=== PATIENT | female | born 1965 | race Caucasian/White ===

== ENCOUNTER 2019-06-03 13:50 | Emergency (ER) | payer OTHER ==
[~2019-06-03] VITALS: Ht 167.6 cm; Wt 59.0 kg
[2019-06-03 14:04] VITALS: BP 156/85
[2019-06-03] MEDS ORDERED: methylPREDNISolone SOD SUCC 125 MG/2 ML VL IV ONE (15:15)
== END 2019-06-03 15:35 | disposition home or self-care (01) ==
LOC: EDBD 13:50 → ER 13:50
DX: T78.40XA Allergy, unspecified, initial encounter (principal); I10 Essential (primary) hypertension; Z88.2 Allergy status to sulfonamides; X58.XXXA Exposure to other specified factors, initial encounter

== ENCOUNTER 2019-06-08 08:34 | Emergency (ER) | payer OTHER ==
[~2019-06-08] VITALS: Ht 167.6 cm; Wt 58.5 kg
[2019-06-08 08:42] VITALS: BP 161/99
== END 2019-06-08 09:56 | disposition home or self-care (01) ==
LOC: ER 08:34
DX: R09.89 Other specified symptoms and signs involving the circulatory and respiratory systems (principal); R21 Rash and other nonspecific skin eruption; I10 Essential (primary) hypertension; Z88.5 Allergy status to narcotic agent; Z88.2 Allergy status to sulfonamides; Z88.8 Allergy status to other drugs, medicaments and biological substances

== ENCOUNTER 2020-03-03 03:13 | Inpatient (IN) | payer OTHER ==
[2020-03-03] VITALS (7 sets, daily range): BP systolic 112–171; BP diastolic 66–89
[~2020-03-03] VITALS: Ht 162.6 cm; Wt 58.5 kg
[2020-03-03] MEDS ORDERED: methylPREDNISolone SOD SUCC 125 MG/2 ML VL IV ONE (04:00)
[2020-03-03 04:11] LABS: Basophils # (auto) 0 10 ^3/uL (0-0.2); Basophils % (auto) 0.6 % (0.0-2.0); Eosinophils # (auto) 0.1 10 ^3/uL (0-0.8); Eosinophils % (auto) 1.1 % (0.0-7.0); Hematocrit 46.3 % (36.0-46.0); Lymphocytes # (auto) 1.8 10 ^3/uL (0.4-5.4); Lymphocytes % (auto) 29.9 % (10.0-50.0); Mean Corpuscular Hemoglobin 33.1 pg (28.0-32.0); Mean Corpuscular Hgb Conc. 34.5 g/dL (32.0-36.0); Mean Corpuscular Volume 95.7 fL (80.0-100.0); Monocytes # (auto) 0.5 10 ^3/uL (0-1.3); Monocytes % (auto) 7.5 % (0.0-12.0); Neutrophils # (auto) 3.7 10 ^3/uL (1.6-8.6); Neutrophils % (auto) 60.9 % (37.0-80.0); Red Blood Cells 4.84 10^6/uL (4.0-5.20); Red Cell Distribution Width 11.9 % (11.8-14.3)
[2020-03-03 04:19] LABS: Platelet Count (auto) 19 10^3/uL (140-450)
[2020-03-03 04:31] LABS: Albumin 3.8 g/dL (3.4-5.0); Anion Gap 3 (5-15); Blood Urea Nitrogen 22 mg/dL (7-18); Calcium 8.7 mg/dL (8.5-10.1); Carbon Dioxide 32 mmol/L (21-32); Chloride 104 mmol/L (98-107); Glucose 127 mg/dL (74-106); Potassium 3.2 mmol/L (3.5-5.1); Sodium 139 mmol/L (136-145)
[2020-03-03 04:37] LABS: Alanine Aminotransferase 33 U/L (13-56); Alkaline Phosphatase 103 U/L (45-117); Aspartate Aminotransferase 24 U/L (15-37); BUN/Creatinine Ratio 27.5; Bilirubin, Total 0.6 mg/dL (0.2-1.0); GFR African American 95 mL/min; GFR Non-African American 79 mL/min; Total Protein 6.8 g/dL (6.4-8.2)
[2020-03-03 04:43] LABS: INR 1.03 (0.9-1.15); Partial Thromboplastin Time 25.9 sec (23.0-31.2)
[2020-03-03 05:48] LABS: Urine Bacteria NONE SEEN /hpf (None Seen); Urine Blood Negative /uL (Negative); Urine Mucus FEW (None Seen); Urine Specific Gravity 1.007 (1.001-1.035); Urine WBC 1 /hpf (0 - 5)
[2020-03-03] MEDS ORDERED: diphenhdrAMINE HCL 50 MG/1 ML VL IV ONE (07:30)
[2020-03-03] MEDS ORDERED: POTASSIUM EFFERVESENT TAB 25 MEQ PO ONE (07:30)
[2020-03-03 09:45] LABS: Basophils # (auto) 0 10 ^3/uL (0-0.2); Basophils % (auto) 0.1 % (0.0-2.0); Eosinophils # (auto) 0 10 ^3/uL (0-0.8); Lymphocytes # (auto) 0.4 10 ^3/uL (0.4-5.4); Monocytes # (auto) 0.5 10 ^3/uL (0-1.3); Platelet Count (auto) 43 10^3/uL (140-450); Red Cell Distribution Width 11.9 % (11.8-14.3)
[2020-03-03] MEDS ORDERED: NITROGLYCERIN 0.4 MG SL TAB SL PRN (09:45)
[2020-03-03] MEDS ORDERED: MORPHINE SULF INJ 2 MG/ML SYRINGE 1ML IV PRN ×2 (09:45)
[2020-03-03] MEDS ORDERED: traMADol HCL 50 MG TAB PO PRN (09:45)
[2020-03-03] MEDS ORDERED: ACETAMINOPHEN 500 MG TAB PO PRN (09:45)
[2020-03-03] MEDS ORDERED: DEXTROSE (50%) 50ML SYRG IV PRN (09:45)
[2020-03-03] MEDS ORDERED: PROMETHAZINE HCL 25 MG/ML 1ML IV PRN (09:45)
[2020-03-03] MEDS ORDERED: TEMAZEPAM 15 MG CAP PO PRN (09:45)
[2020-03-03 09:46] LABS: Hemoglobin 15.8 g/dL (12.2-16.2); Lymphocytes % (auto) 2.1 % (10.0-50.0); Mean Corpuscular Hemoglobin 32.6 pg (28.0-32.0); Mean Corpuscular Hgb Conc. 34.2 g/dL (32.0-36.0); Mean Corpuscular Volume 95.1 fL (80.0-100.0); Monocytes % (auto) 2.9 % (0.0-12.0); Neutrophils # (auto) 17.3 10 ^3/uL (1.6-8.6); Neutrophils % (auto) 94.9 % (37.0-80.0); Red Blood Cells 4.84 10^6/uL (4.0-5.20); White Blood Cell 18.3 10^3/uL (4.4-10.8)
[2020-03-03 10:22] LABS: Alcohol, Urine < 3.0 mg/dL (0-10); Amphetamine Screen, Urine NEGATIVE (NEGATIVE); Barbiturate Scree,Urine NEGATIVE (NEGATIVE); Benzodiazephine Screen, Urine NEGATIVE (NEGATIVE); Cannabinoid Screen, Urine NEGATIVE (NEGATIVE); Cocaine Screen, Urine NEGATIVE (NEGATIVE); Opiate Scree,Urine NEGATIVE (NEGATIVE); Phencyclidine Screen, Urine NEGATIVE (NEGATIVE)
[2020-03-03] MEDS: SODIUM CHLORIDE 0.9% 1,000 ML IV SCH ×2 (10:32→22:24)
[2020-03-03] MEDS: NITROGLYCERIN 0.2MG/HR TOPICAL PATCH TD SCH (10:32)
[2020-03-03] MEDS: ACCU-CHEK COMFORT CURVE STRIP VI SCH ×3 (11:34→22:13)
[2020-03-03] MEDS ORDERED: MAGN400T40 PO (12:16)
[2020-03-03] MEDS ORDERED: FLUO0.059 TOP (12:16)
[2020-03-03] MEDS ORDERED: FLUO0.054 TOP (12:20)
[2020-03-03 17:10] LABS: Cholesterol 153 mg/dL (< 200); HDL Cholesterol 68 mg/dL (40-59); LDL Cholesterol 80 mg/dL (< 100); Triglycerides 32 mg/dL (< 150)
--- NOTE | 2020-03-03 19:00 | NUR ---
Opening Shift Note Assumed care of patient, awake and alert. No S/S of distress/SOB or pain. Instructed on POC and to call for assist PRN, will continue to monitor for changes Q1hr and PRN.
--- NOTE | 2020-03-03 20:47 | NUR ---
RT CALLED CALLED RT AT 2046 ABOUT HER C-PAP ORDER. DARLINE FROM RT SAID THEY WILL SEE THE PATIENT.
[2020-03-03] MEDS: ATORVASTATIN 20 MG TAB PO SCH (22:00)
--- NOTE | 2020-03-03 22:05 | NUR ---
REFUSED LIPITOR PATIENT WISHES TO CONSULT MD AT [facility] BEFORE TAKING LIPITOR.
[2020-03-04 05:09] VITALS: BP 124/76
[2020-03-04] MEDS: ACCU-CHEK COMFORT CURVE STRIP VI SCH (06:21)
--- NOTE | 2020-03-04 07:21 | NUR ---
PT. FOUND OFF CPAP MACHINE THIS AM. , NO RESP. DISTRESS NOTED. PT. STATES THAT SHE WEARS ONE AT NIGHT AT HOME. PT. STATES SHE WORE THE CPAP LAST NIGHT AND DID OK WITH IT. PT. WILL WEAR AGAIN TONIGHT IF SHE IS STAYING. HR=79,RR=16,SP02=97% ON RA.
--- NOTE | 2020-03-04 07:30 | NUR ---
Opening Shift Note Assumed care of patient, awake and alert. No S/S of distress/SOB or pain. Instructed on POC and to call for assist PRN, will continue to monitor for changes Q1hr and PRN. Bed is locked and in lowest position. Call light within reach.
[2020-03-04 08:00] VITALS: BP_SYST 123; BP_SYST 131; BP_DIAS 69; BP_DIAS 72
[2020-03-04] MEDS ORDERED: ADENOSINE 50 MG in GIVE UN-DILUTED 0 ML IV STA (08:28)
[2020-03-04] MEDS: NITROGLYCERIN 0.2MG/HR TOPICAL PATCH TD SCH (11:29)
[2020-03-04] MEDS ORDERED: cefTRIAXone 1GM/50ML D5W 50 ML IV ONE (11:30)
[2020-03-04 12:00] VITALS: BP 123/69
[2020-03-04] MEDS: SODIUM CHLORIDE 0.9% 1,000 ML IV SCH (12:24)
--- NOTE | 2020-03-04 14:00 | NUR ---
PATIENT REQUESTED [employer] TO TALK ABOUT PERSONAL MATTERS. YASH FROM [employer] WAS ABLE TO SPEAK TO PATIENT. WILL CONTINUE TO MONITOR PATIENT.
[2020-03-04 17:00] VITALS: BP 125/72
--- NOTE | 2020-03-04 20:59 | NUR ---
LIPITOR REFUSED AGAIN PATIENT DOES NOT WISH TO TAKE HER LIPITOR UNTIL SHE SPEAKS TO HER GAS ENGINE REPAIRER AT [facility].
[2020-03-04 22:00] VITALS: BP 127/74
[2020-03-04] MEDS: ATORVASTATIN 20 MG TAB PO SCH (22:00)
[2020-03-05 05:00] VITALS: BP 123/79
[2020-03-05 06:41] LABS: Basophils # (auto) 0.1 10 ^3/uL (0-0.2); Eosinophils # (auto) 0.1 10 ^3/uL (0-0.8); Hemoglobin 13.9 g/dL (12.2-16.2); Lymphocytes # (auto) 2.1 10 ^3/uL (0.4-5.4); Neutrophils # (auto) 6.2 10 ^3/uL (1.6-8.6); Red Blood Cells 4.15 10^6/uL (4.0-5.20)
[2020-03-05 06:43] LABS: Basophils % (auto) 0.9 % (0.0-2.0); Eosinophils % (auto) 1.1 % (0.0-7.0); Hematocrit 39.6 % (36.0-46.0); Lymphocytes % (auto) 22.9 % (10.0-50.0); Mean Corpuscular Hemoglobin 33.4 pg (28.0-32.0); Mean Corpuscular Volume 95.6 fL (80.0-100.0); Monocytes # (auto) 0.7 10 ^3/uL (0-1.3); Monocytes % (auto) 7.5 % (0.0-12.0); Neutrophils % (auto) 67.6 % (37.0-80.0); Platelet Count (auto) 38 10^3/uL (140-450); Red Cell Distribution Width 12.3 % (11.8-14.3); White Blood Cell 9.2 10^3/uL (4.4-10.8)
[2020-03-05 09:00] VITALS: BP 135/76
[2020-03-05] MEDS: cefTRIAXone 1GM/50ML D5W 50 ML IV SCH (09:12)
[2020-03-05] MEDS: NITROGLYCERIN 0.2MG/HR TOPICAL PATCH TD SCH (09:18)
[2020-03-05] MEDS: SODIUM CHLORIDE 0.9% 1,000 ML IV SCH ×2 (12:08→15:02)
[2020-03-05 13:00] VITALS: BP 144/90
--- NOTE | 2020-03-05 14:09 | NUR ---
Nutrition Assessment Note please see attached link for complete assessment Est Energy needs BW 58 [id number] kcals (25-30 kcal/kgBW), Est Protein needs: 58-69 gms/day (1.0-1.2 gm/kgBW). Will continue to monitor and reassess prn. Addendum: 03/05/20 at [address] Amended: Links added.
[2020-03-05 17:00] VITALS: BP 159/94
--- NOTE | 2020-03-05 18:30 | NUR ---
IV removal IV DC'd on right AC with clean sterile technique, catheter fully intact. Pressure dressing applied to site. Patient tolerated well. Tried to obtain IV access via clean sterile technique by inserting 20 gauge catheter at right forearm and left ac after 2 attempts. No IV access was obtained. Pressure dressing applied to site. Patient tolerated well.
--- NOTE | 2020-03-05 19:00 | NUR ---
Opening Shift Note Assumed care of patient, awake and alert. No S/S of distress/SOB or pain. Instructed on POC and to callf or assist PRN, will continue to monitor for changes Q1hr and PRN.
[2020-03-05 22:00] VITALS: BP 151/103
[2020-03-05] MEDS: ATORVASTATIN 20 MG TAB PO SCH (22:00)
--- NOTE | 2020-03-05 22:30 | NUR ---
PT REFUSING TO WEAR CPAP TONIGHT. EXPLAINED ALL BENEFITS OF CPAP. PT STILL REFUSING.
[2020-03-06 05:00] VITALS: BP 147/84
--- NOTE | 2020-03-06 06:32 | NUR ---
PT ASSESSED AT THIS TIME FOR CPAP USAGE. RECEIVED PT OFF CPAP. PT IS ON ROOM AIR, SPO2 95%, HR 71, RR 18. PT STATES SHE WILL WEAR CPAP. CPAP UNIT WILL REMAIN AT BEDSIDE.
[2020-03-06 07:43] LABS: Basophils # (auto) 0 10 ^3/uL (0-0.2); Basophils % (auto) 0.5 % (0.0-2.0); Eosinophils # (auto) 0.2 10 ^3/uL (0-0.8); Eosinophils % (auto) 2.4 % (0.0-7.0); Hemoglobin 14.9 g/dL (12.2-16.2); Lymphocytes # (auto) 1.9 10 ^3/uL (0.4-5.4); Mean Corpuscular Volume 94.6 fL (80.0-100.0); Nucleated Red Blood Cells % 0.1 %
[2020-03-06 07:45] LABS: Hematocrit 42.6 % (36.0-46.0); Lymphocytes % (auto) 19.9 % (10.0-50.0); Mean Corpuscular Hemoglobin 33.1 pg (28.0-32.0); Monocytes # (auto) 0.9 10 ^3/uL (0-1.3); Monocytes % (auto) 9.1 % (0.0-12.0); Neutrophils # (auto) 6.4 10 ^3/uL (1.6-8.6); Neutrophils % (auto) 68.1 % (37.0-80.0); Platelet Count (auto) 41 10^3/uL (140-450); Red Cell Distribution Width 12.1 % (11.8-14.3); White Blood Cell 9.4 10^3/uL (4.4-10.8)
[2020-03-06 09:16] VITALS: BP 156/91
[2020-03-06] MEDS: cefTRIAXone 1GM/50ML D5W 50 ML IV SCH (09:17)
--- NOTE | 2020-03-06 09:50 | NUR ---
Hospitalist Rounded Dr. Collado at bedside.
[2020-03-06 11:18] VITALS: BP 156/91
[2020-03-06 11:26] VITALS: BP 146/96
[2020-03-06 13:00] VITALS: BP 146/96
--- NOTE | 2020-03-06 14:10 | NUR ---
Discharge instructions given as ordered. Encourage to follow up with PMD as instructed. All questions and concerns addressed. Patient verbalized understanding. Medication reconciliation form completed and copy given to patient. IV removed with catheter intact and pressure dressing applied. Telemetry unit returned to ICU. Patient taken to vehicle via wheelchair with all personal belongings, accompanied by staff. No distress noted at time of departure.
== END 2020-03-06 14:10 | disposition home or self-care (01) | DRG 281 ==
LOC: EDBD 03:13 → ER 03:19 → TELE 03:20 → TELE-WESTW 18:32
PROVIDERS: ADMIT Internal Medicine; ATTEND Family Medicine
PROC: 5A09357 Assistance with Respiratory Ventilation, Less than 24 Consecutive Hours, Continuous Positive Airway Pressure (ICD-10-PCS; principal; 2020-03-03)
PROC: 30233R1 Transfusion of Nonautologous Platelets into Peripheral Vein, Percutaneous Approach (ICD-10-PCS; 2020-03-03)
DX: I21.4 Non-ST elevation (NSTEMI) myocardial infarction (principal); N39.0 Urinary tract infection, site not specified; D69.3 Immune thrombocytopenic purpura; E87.6 Hypokalemia; F41.9 Anxiety disorder, unspecified; G47.33 Obstructive sleep apnea (adult) (pediatric); R00.0 Tachycardia, unspecified; R73.9 Hyperglycemia, unspecified; R55 Syncope and collapse; I10 Essential (primary) hypertension; I16.0 Hypertensive urgency; Z82.0 Family history of epilepsy and other diseases of the nervous system; Z80.1 Family history of malignant neoplasm of trachea, bronchus and lung; Z82.49 Family history of ischemic heart disease and other diseases of the circulatory system; Z86.2 Personal history of diseases of the blood and blood-forming organs and certain disorders involving the immune mechanism; Z93.0 Tracheostomy status; Z88.5 Allergy status to narcotic agent; Z88.1 Allergy status to other antibiotic agents; Z88.2 Allergy status to sulfonamides
CPT/HCPCS: 36415; 70450; 70551; 71045; 78452; 80053; 80061; 80307; 81001; 82550; 82962; 83036; 83735; 83880; 84443; 84484; 85025; 85379; 85610; 85652; 85730; 86141; 86850; 86900; 86901; 87040; 93005; 93017; 93306; 93886; 94660; G0378; J0153; J0696

== ENCOUNTER 2025-02-22 08:52 | Outpatient (CLI) | payer MEDICAID ==
[~2025-02-22 08:52] MED LIST: FLUO0.054 TOP; MAGN400T40 PO
== END 2025-02-22 17:00 | disposition home or self-care (01) ==
LOC: LAB 08:52
PROVIDERS: ATTEND Internal Medicine
DX: D75.1 Secondary polycythemia (principal); D69.6 Thrombocytopenia, unspecified; E53.9 Vitamin B deficiency, unspecified
CPT/HCPCS: 36415; 85049